=== PATIENT | female | born 1980 | race African-American/Black ===

== ENCOUNTER 2017-01-23 23:55 | Emergency (ER) | payer OTHER ==
[2017-01-24 00:10] VITALS: BMI 29.0
--- NOTE | 2017-01-24 00:30 | DR.GENAD ---
HPI - PCP Primary Care Physician: alvaro - Complaint/Symptoms Chief Complaint Doctors Comments: Patient complains of mid-sternum chest pain; relieved by GI cocktail. Chief Complaint:: hurting in mid sternum and around top of left breast patient burped earlier and it got better but did not go away. left leg also been hurting Self Treatment fo Chief Complaint: gi cocktail times 2 last dose about 10:17 patient took a 1/2 soma about 10pm - Source History Provided: Patient - Mode of Arrival Mode of Arrival: Ambulatory - Timing Onset of Chief Complaint: 01/23/17 PMH - PMH Past Medical History: Yes Past Medical History: Anxiety, Depression, Dyslipidemia, GERD Past Medical History Comment: swelling Past Surgical History: Yes Surgical History: - Family History History of Family Medical Conditions: Yes Family Medical History: Diabetes Mellitus, [place], Hypertension Family Medical History Comment: cva - Social History Does patient currently use any type of tobacco product: No Have you used tobacco products in the last 12 months: No Type of Tobacco Use: None How many years tobacco product used: 10 Does any household member use tobacco: No Alcohol Use: None Do you use any recreational Drugs:: No Lives With: Family Lives Where: Home - infectious screening In the last 2 months have you had wt loss of >10#?: NO Have you had fever, night sweats or hemotysis?: No Have you traveled outside the country in the last 6 months?: No Isolation: Standard ROS - Review of Systems Constitutional: No Symptoms Reported Eyes: No Symptoms Reported ENTM: No Symptoms Reported Respiratoy: No Symptoms Reported Cardiovascular: No Symptoms Reported Gastrointestinal/Abdominal: No Symptoms Reported Genitourinary: No Symptoms Reported Neurological: No Symptoms Reported Musculoskeletal: No Symptoms Reported Integumentary: No Symptoms Reported Hematologic/Lymphatic: No Symptoms Reported Endocrine: No Symptoms Reported Psychiatric: No Symptoms Reported All Other Systems: Reviewed and Negative PE - Vital Signs Vitals: Temperature 98.3 F Pulse Rate 79 Respiratory Rate 20 Blood Pressure 105/80 O2 Sat by Pulse Oximetry 98 - General Limitations: No Limitations General Appearance: Alert, In No Apparent Distress - Head Head Exam: Normal Inspection, Atraumatic - Eyes Eye exam: Normal Appearance, PERRL, EOMI - ENT ENT Exam: Normal Exam External Ear Exam: Normal External Inspection TM/Canal Exam: Bilateral Normal Nose Exam: Normal Nose Exam Mouth Exam: Normal Inspection Throat Exam: Normal Inspection - Neck Neck Exam: Normal Inspection - Chest Chest Inspection: Normal Inspection - Respiratory Respiratory Exam: Normal Lung Sounds Bilat Respiratory Exam: Bilateral Clear to Auscultation - Cardiovascular Cardiovascular Exam: Regular Rate, Normal Rhythm - Abdominal Exam Abdominal Exam: Normal Inspection, Normal Bowel Sounds Abdominal Tenderness: negative: RUQ, RLQ, LUQ, LLQ, Epigastrium, Suprapubic, Diffuse, Mild, Moderate, Severe, Other - Extremities Extremities Exam: Normal Inspection - Back Back Exam: Normal Inspection, Full ROM - Neurologic Neurological Exam: Alert, Oriented X3, CN II-XII Intact - Psychiatric Psychiatric Exam: Normal Affect, Normal Mood - Skin Skin Exam: Warm, Dry, Intact Course - Reevaluation 1st: Improved ROR - Labs Reviewed Laboratory Results Reviewed?: Yes (low potassium) Result Diagrams: 01/24/17 01:00 01/24/17 01:00 Laboratory: WBC 6.3 X10^3/uL (3.6-10.0) 01/24/17 01:00 RBC 3.85 X10^6/uL (3.5-5.4) 01/24/17 01:00 Hgb 11.4 g/dL (12.0-16.0) L 01/24/17 01:00 Hct 34.7 % (36.0-47.0) L 01/24/17 01:00 MCV 90.3 fL (80.0-100.0) 01/24/17 01:00 MCH 29.5 pg (27.0-34.0) 01/24/17 01:00 MCHC 32.7 g/dL (33.0-35.0) L 01/24/17 01:00 RDW 14.8 % (11.6-16.5) 01/24/17 01:00 Plt Count 285 X10^3/uL (150.0-450.0) 01/24/17 01:00 MPV 6.8 fL (7.4-11.0) L 01/24/17 01:00 Neut % 32.7 % (42.0-75.0) L 01/24/17 01:00 Lymph % 56.6 % (21.0-51.0) H 01/24/17 01:00 [place] % 6.7 % (0.0-13.0) 01/24/17 01:00 Eos % 3.3 % (0.9-2.9) H 01/24/17 01:00 Baso % 0.7 % (0.2-1.0) 01/24/17 01:00 Neut # 2.0 x10^3/uL (2.2-4.8) L 01/24/17 01:00 Lymph # 3.6 X10^3/uL (1.3-2.9) H 01/24/17 01:00 [place] # 0.4 x10^3/uL (0.3-0.8) 01/24/17 01:00 Eos # 0.2 x10^3/uL (0.0-0.2) 01/24/17 01:00 Baso # 0.0 X10^3/uL (0.0-0.1) 01/24/17 01:00 Absolute Nucleated RBC 0.1 /100WBC 01/24/17 01:00 INR Target Range - 01/24/17 01:00 INR 0.92 (0.8-1.3) 01/24/17 01:00 Sample Site Lr 01/24/17 01:25 ABG pH 7.420 (7.35-7.45) 01/24/17 01:25 ABG pCO2 44.0 mmHg (35.0-45.0) 01/24/17 01:25 ABG pO2 75.0 mmHg (80.0-100.0) L 01/24/17 01:25 ABG HCO3 28.5 mmol/L (22-26) H 01/24/17 01:25 ABG O2 Saturation 95.0 % (90-100) 01/24/17 01:25 ABG Base Excess 3.5 mmol/L (-2.0-2.0) H 01/24/17 01:25 Mik Test Pos 01/24/17 01:25 A-a Gradient 20.0 mmHg 01/24/17 01:25 FiO2 21 01/24/17 01:25 Blood Gas Comments Suki well ae 01/24/17 01:25 Sodium 141 mmol/L (136-145) 01/24/17 01:00 Corrected Sodium TNP 01/24/17 01:00 Potassium 3.3 mmol/L (3.5-5.1) L 01/24/17 01:00 Chloride 102 mmol/L (98-107) 01/24/17 01:00 Carbon Dioxide 28.8 mmol/L (21-32) 01/24/17 01:00 BUN 9 mg/dL (7-18) 01/24/17 01:00 Creatinine 1.03 mg/dL (0.55-1.02) H 01/24/17 01:00 Est GFR (MDRD) Af Amer > 60 (>60) 01/24/17 01:00 Est GFR (MDRD) Non-Af > 60 (>60) 01/24/17 01:00 Glucose 87 mg/dL (65-99) 01/24/17 01:00 Calcium 8.6 mg/dL (8.5-10.1) 01/24/17 01:00 Corrected Calcium TNP 01/24/17 01:00 Phosphorus 3.6 mg/dL (2.6-4.7) 01/24/17 01:00 Magnesium 2.0 mg/dL (1.7-2.9) 01/24/17 01:00 Total Bilirubin 0.20 mg/dL (0.2-1.0) 01/24/17 01:00 AST 20 Units/L (15-37) 01/24/17 01:00 ALT 23 Units/L (12-78) 01/24/17 01:00 Alkaline Phosphatase 67 Units/L (46-116) 01/24/17 01:00 Creatine Kinase 219 Units/L (26-192) H 01/24/17 01:00 CK-MB (CK-2) 1.3 ng/mL (0-4.0) 01/24/17 01:00 CK/CKMB % Calc 0.6 % (<4) 01/24/17 01:00 Troponin I < 0.02 ng/mL (0-1.5) 01/24/17 01:00 Total Protein 7.2 g/dL (6.4-8.2) 01/24/17 01:00 Albumin 3.5 g/dL (3.4-5.0) 01/24/17 01:00 Globulin 3.7 g/dL (2.5-4.5) 01/24/17 01:00 Albumin/Globulin Ratio 0.9 Ratio (1.1-2.1) L 01/24/17 01:00 - Diagnosis Discharge Problem: Hypokalemia Chest pain Qualifiers: Chest pain type: unspecified Qualified Code(s): R07.9 - Chest pain, unspecified - Discharge Plan Condition: Stable - Follow ups/Referrals Follow ups/Referrals: Hany Willis [Primary Care Provider] - 3 days - Instructions
--- NOTE | 2017-01-24 01:04 | RAD ---
EXAM: Chest X-ray INDICATION: Chest pain COMPARISION: Prior exam from May 22, 2015 TECHNIQUE: AP, single view FINDINGS: The lungs are clear in the lung volumes are within normal limits. No pleural effusion or pneumothora x. The cardiac silhouette and mediastinum are normal. The regional skeleton is intact. IMPRESSION: Normal Chest X-Ray Reported By:
[2017-01-24 01:30] LABS: ABG ALLEN TEST POS; ABG BASE EXCESS 3.5 mmol/L (-2.0-2.0); ABG HCO3 28.5 mmol/L (22-26); FRACTIONATED INSPIRED OXYGEN 21
[2017-01-24 01:38] LABS: BASOPHILS % (AUTO) 0.7 % (0.2-1.0); EOSINOPHILS # (AUTO) 0.2 x10^3/uL (0.0-0.2); EOSINOPHILS % (AUTO) 3.3 % (0.9-2.9); HEMATOCRIT 34.7 % (36.0-47.0); HEMOGLOBIN 11.4 g/dL (12.0-16.0); LYMPHOCYTES # (AUTO) 3.6 X10^3/uL (1.3-2.9); LYMPHOCYTES % (AUTO) 56.6 % (21.0-51.0); MEAN CORPUSCULAR HEMOGLOBIN 29.5 pg (27.0-34.0); MEAN CORPUSCULAR HGB CONC 32.7 g/dL (33.0-35.0); MEAN CORPUSCULAR VOLUME 90.3 fL (80.0-100.0); MEAN PLATELET VOLUME 6.8 fL (7.4-11.0); MONOCYTES # (AUTO) 0.4 x10^3/uL (0.3-0.8); MONOCYTES % (AUTO) 6.7 % (0.0-13.0); NEUTROPHILS % (AUTO) 32.7 % (42.0-75.0); PLATELET COUNT 285 X10^3/uL (150.0-450.0); RED BLOOD COUNT 3.85 X10^6/uL (3.5-5.4); RED CELL DISTRIBUTION WIDTH 14.8 % (11.6-16.5); WHITE BLOOD COUNT 6.3 X10^3/uL (3.6-10.0)
[2017-01-24 01:50] LABS: BLOOD UREA NITROGEN 9 mg/dL (7-18); CALCIUM 8.6 mg/dL (8.5-10.1); CARBON DIOXIDE 28.8 mmol/L (21-32); CHLORIDE 102 mmol/L (98-107); CREATININE 1.03 mg/dL (0.55-1.02); GLUCOSE 87 mg/dL (65-99); SODIUM 141 mmol/L (136-145); TROPONIN I < 0.02 ng/mL (0-1.5); eGFR BLACK RACES > 60 (>60); eGFR NON BLACK RACES > 60 (>60)
[2017-01-24 01:54] LABS: ALANINE AMINOTRANSFERASE 23 Units/L (12-78); ALBUMIN 3.5 g/dL (3.4-5.0); ALKALINE PHOSPHATASE 67 Units/L (46-116); ASPARTATE AMINO TRANSFERASE 20 Units/L (15-37); CKMB % 0.6 % (<4); CREATINE KINASE 219 Units/L (26-192); CREATINE KINASE MB 1.3 ng/mL (0-4.0); PHOSPHORUS 3.6 mg/dL (2.6-4.7); TOTAL PROTEIN 7.2 g/dL (6.4-8.2)
[2017-01-24] MEDS ORDERED: K-DUR TAB 20 MEQ PO ONE ×2 (02:03→02:05)
[2017-01-24 02:24] VITALS: BP 115/75
== END 2017-01-24 02:24 | disposition home or self-care (01) ==
LOC: ER 23:55
DX: R07.89 Other chest pain (principal); E87.6 Hypokalemia
CPT/HCPCS: 36415; 36600; 71010; 80053; 82550; 82553; 82803; 83735; 84100; 84484; 85025; 85610; 93005; 99283

== ENCOUNTER 2017-02-05 20:14 | Emergency (ER) | payer OTHER ==
[2017-02-05 20:20] VITALS: BP 116/74; BMI 31.0
--- NOTE | 2017-02-05 21:08 | DR.FB ---
HPI - Time Seen Time seen: 21:00 - PCP Primary Care Physician: USAMA - HPI Comment HPI Comment: SWELLING DISTAL RT INDEX FINGER. PATIENT SAID A METAL IT EMBEDDED IN THE FINGER. SHE TRY PULLING IT OUT WITHOUT SUCCESS. - Complaint Chief Complaint:: RIGHT HAND INDEX FINGER EDEMA, METAL IN FINGER FOR A WHILE NOW. PAIN - Reviewed Nurses Notes Review: Yes - Source History Provided: Patient - Mode of Arrival Mode of Arrival: Ambulatory - Timing Onset of Chief Complaint: 02/05/17 - Context Context: Injury Foreign body: Other (METAL) Removal: Was attempted (BY PATIENT), Was not successful Last tetanus: UTD - Severity Pain Severity: Moderate PMH - PMH Past Medical History: Yes Past Medical History: Anxiety, Depression, Dyslipidemia, GERD Past Surgical History: Yes Surgical History: - Family History History of Family Medical Conditions: Yes Family Medical History: Diabetes Mellitus, [place], Hypertension - Social History Does patient currently use any type of tobacco product: No Have you used tobacco products in the last 12 months: No Type of Tobacco Use: None Alcohol Use: None Do you use any recreational Drugs:: No Lives With: Family Lives Where: Home - infectious screening Have you traveled outside the country in the last 6 months?: No Isolation: Standard ROS - Review of Systems Constitutional: No Symptoms Reported Eyes: No Symptoms Reported ENTM: No Symptoms Reported Respiratoy: No Symptoms Reported Cardiovascular: No Symptoms Reported Gastrointestinal/Abdominal: No Symptoms Reported Genitourinary: No Symptoms Reported Neurological: No Symptoms Reported Musculoskeletal: Right, Hand Integumentary: Other (FB FINGER) Hematologic/Lymphatic: No Symptoms Reported Endocrine: No Symptoms Reported All Other Systems: Reviewed and Negative PE - Vital Signs Vitals: Pulse Rate 76 Respiratory Rate 16 Blood Pressure [Left Arm] 115/75 Blood Pressure 116/74 O2 Sat by Pulse Oximetry 99 - General Limitations: No Limitations General Appearance: Alert - Eyes Eye exam: Normal Appearance - ENT ENT Exam: Normal External Ear Exam External Ear Exam: Normal External Inspection Throat Exam: Normal Inspection - Neck Neck Exam: Trachea Midline - Respiratory Respiratory Exam: Bilateral Clear to Auscultation - Cardiovascular Cardiovascular Exam: Regular Rate, Normal Rhythm, Normal Heart Sounds - Abdominal Exam Abdominal Exam: Normal Inspection - Rectal Rectal Exam: Deferred - Genitalia Genitalia: Deferred - Neurologic Neurological Exam: Alert, Oriented X3 - Psychiatric Psychiatric Exam: Anxious - Skin Skin Exam: Normal Color MDM - Differential Diagnosis Differential Diagnosis: Foreign body, Other Course - Treatment Treatment: XRAY DID NOT VISUALIZE FB. PALPATION OF FINGER, NO FB FELT. - Education/Counseling Education/Counseling: Patient, Education Educated On: Diagnosis, Needs for Follow Up ROR - XRAY XRAY Interpreted by: Radiologist XRAY Findings: REPORT DISCUSS WITH PATIENT. - Diagnosis Discharge Problem: Abrasion Contusion of finger, right Qualifiers: Encounter type: initial encounter Finger: index finger Damage to nail status: without damage Qualified Code(s): S60.021A - Contusion of right index finger without damage to nail, initial encounter - Discharge Plan Disposition: HOME, SELF-CARE Condition: Stable - Follow ups/Referrals Follow ups/Referrals: Hany Willis [Primary Care Provider] - 1 day - Instructions Instructions: Abrasion, [id number], Contusion Additional Instructions: RETURN TO ED IF WORSE.
--- NOTE | 2017-02-05 22:27 | RAD ---
Right hand, three views Indication: Finger swelling, concern for metal in finger Comparison: None Findings: There is mild soft tissue swelling of the index finger. No radiopaque density identified. No cortical lucency or malalignment of the bones appreciated. Impression: Soft tissue swelling the index finger, without evidence for radiopaque foreign body. No acute skeletal abnormality. Reported By:
== END 2017-02-05 22:08 | disposition home or self-care (01) ==
LOC: ER 20:26
DX: S60.021A Contusion of right index finger without damage to nail, initial encounter (principal); M79.89 Other specified soft tissue disorders; W45.8XXA Other foreign body or object entering through skin, initial encounter; Y92.9 Unspecified place or not applicable
CPT/HCPCS: 73130; 99282; 99283

== ENCOUNTER 2017-08-03 10:43 | Emergency (ER) | payer OTHER ==
[2017-08-03 10:54] VITALS: BP 117/71; BMI 31.7
--- NOTE | 2017-08-03 11:13 | DR.GENAD ---
HPI - PCP Primary Care Physician: CAIT - HPI Comment HPI Comment: PAIN LEFT THIGH GOING INTO RT FOOT. ALSO LEFT UPPER CHEST PAIN THAT IS GETTING WORSE. PCP GAVE MEDS AND PATIENT IS TAKING MEDS. STILL PAIN PERSIST AND IS GETTING WORSE. - Complaint/Symptoms Chief Complaint Doctors Comments: PAIN LEFT UPPER CHEST AND LT THIGH. Chief Complaint:: LEFT LEG AND FOOT Self Treatment fo Chief Complaint: RESTING AND GAVE ME SOME MEDS FOR INFLAMATION. - Nurses notes reviewed Nurses Notes Review: Yes - Source History Provided: Patient - Mode of Arrival Mode of Arrival: Ambulatory - Timing Onset of Chief Complaint: 07/06/17 Came on: Suddenly - Duration Duration: Constant Duration: Days - Severity Severity: Moderate PMH - PMH Past Medical History: Yes Past Medical History: Anxiety, Depression, Dyslipidemia, GERD Past Surgical History: Yes Surgical History: - Family History History of Family Medical Conditions: Yes Family Medical History: Diabetes Mellitus, [place], Hypertension - Social History Does any household member use tobacco: No Alcohol Use: None Do you use any recreational Drugs:: No Lives With: Family Lives Where: Home - infectious screening In the last 2 months have you had wt loss of >10#?: NO Have you had fever, night sweats or hemotysis?: No Have you traveled outside the country in the last 6 months?: No Isolation: Standard ROS - Review of Systems Constitutional: No Symptoms Reported Eyes: No Symptoms Reported ENTM: No Symptoms Reported Respiratoy: Short of Breath Cardiovascular: Chest Pain Genitourinary: No Symptoms Reported Neurological: No Symptoms Reported Musculoskeletal: Muscle Pain, Right, Hip, Leg Integumentary: No Symptoms Reported Hematologic/Lymphatic: No Symptoms Reported Endocrine: No Symptoms Reported All Other Systems: Reviewed and Negative PE - Vital Signs Vitals: Temperature 98.2 F Pulse Rate 74 Respiratory Rate 20 Blood Pressure [Left Arm] 115/75 Blood Pressure 117/71 O2 Sat by Pulse Oximetry 100 - General Limitations: No Limitations General Appearance: Alert - Head Head Exam: Normal Inspection - Eyes Eye exam: Normal Appearance - ENT ENT Exam: Normal External Ear Exam External Ear Exam: Normal External Inspection TM/Canal Exam: Bilateral Normal Nose Exam: Normal Nose Exam Mouth Exam: Normal Inspection Throat Exam: Normal Inspection - Neck Neck Exam: Normal Inspection - Chest Chest Inspection: Symmetric Chest Wall Rise - Respiratory Respiratory Exam: Normal Lung Sounds Bilat Respiratory Exam: Bilateral Clear to Auscultation - Cardiovascular Cardiovascular Exam: Regular Rate, Normal Rhythm, Normal Heart Sounds - Abdominal Exam Abdominal Exam: Normal Bowel Sounds, Soft. negative: Tenderness - Extremities Extremities Exam: Tenderness (LEFT THIGH TENDER.) - Back Back Exam: Normal Inspection - Neurologic Neurological Exam: Alert, Oriented X3, CN II-XII Intact, Normal Gait, Reflexes Normal. negative: Motor Sensory Deficit - Psychiatric Psychiatric Exam: Normal Affect, Normal Mood - Skin Skin Exam: Normal Color MDM - Additional Information Additional Information Obtained From: Family - Differential Diagnosis Differential Diagnosis: MUSCULOSKETAL PAIN, ARTHRTIS, DVT, [place], PULMONARY EMBOLISM. Course - Treatment Treatment: SEE ORDERS. VERAL ATTEMPTS AT IV INSERTION FAIL. DVT NEGATIVE PER US. PATIENT WILL SEE DR. FORRESTER IN AM FOR FURTHER MANAGEMENT. - Education/Counseling Education/Counseling: Patient, Family, Education Educated On: Treatment, Diagnosis, Needs for Follow Up ROR - Labs Reviewed Laboratory Results Reviewed?: Yes Result Diagrams: 08/03/17 11:34 08/03/17 11:34 Laboratory: WBC 5.8 X10^3/uL (3.6-10.0) 08/03/17 11:34 RBC 3.95 X10^6/uL (3.5-5.4) 08/03/17 11:34 Hgb 12.0 g/dL (12.0-16.0) 08/03/17 11:34 Hct 35.8 % (36.0-47.0) L 08/03/17 11:34 MCV 90.5 fL (80.0-100.0) 08/03/17 11:34 MCH 30.4 pg (27.0-34.0) 08/03/17 11:34 MCHC 33.7 g/dL (33.0-35.0) 08/03/17 11:34 RDW 14.3 % (11.6-16.5) 08/03/17 11:34 Plt Count 281 X10^3/uL (150.0-450.0) 08/03/17 11:34 MPV 6.5 fL (7.4-11.0) L 08/03/17 11:34 Neut % 41.9 % (42.0-75.0) L 08/03/17 11:34 Lymph % 45.5 % (21.0-51.0) 08/03/17 11:34 [place] % 7.9 % (0.0-13.0) 08/03/17 11:34 Eos % 4.0 % (0.9-2.9) H 08/03/17 11:34 Baso % 0.7 % (0.2-1.0) 08/03/17 11:34 Neut # 2.4 x10^3/uL (2.2-4.8) 08/03/17 11:34 Lymph # 2.6 X10^3/uL (1.3-2.9) 08/03/17 11:34 [place] # 0.5 x10^3/uL (0.3-0.8) 08/03/17 11:34 Eos # 0.2 x10^3/uL (0.0-0.2) 08/03/17 11:34 Baso # 0.0 X10^3/uL (0.0-0.1) 08/03/17 11:34 Absolute Nucleated RBC 0.1 /100WBC 08/03/17 11:34 D-Dimer 603 ng/mL (0-400) H* 08/03/17 11:34 Sodium 139 mmol/L (136-145) 08/03/17 11:34 Corrected Sodium TNP 08/03/17 11:34 Potassium 3.9 mmol/L (3.5-5.1) 08/03/17 11:34 Chloride 104 mmol/L (98-107) 08/03/17 11:34 Carbon Dioxide 26.9 mmol/L (21-32) 08/03/17 11:34 BUN 7 mg/dL (7-18) 08/03/17 11:34 Creatinine 1.01 mg/dL (0.55-1.02) 08/03/17 11:34 Est GFR (MDRD) Af Amer > 60 (>60) 08/03/17 11:34 Est GFR (MDRD) Non-Af > 60 (>60) 08/03/17 11:34 Glucose 103 mg/dL (65-99) H 08/03/17 11:34 Calcium 8.8 mg/dL (8.5-10.1) 08/03/17 11:34 Corrected Calcium TNP 08/03/17 11:34 Total Bilirubin 0.40 mg/dL (0.2-1.0) 08/03/17 11:34 AST 23 Units/L (15-37) 08/03/17 11:34 ALT 23 Units/L (12-78) 08/03/17 11:34 Alkaline Phosphatase 67 Units/L (46-116) 08/03/17 11:34 Creatine Kinase 250 Units/L (26-192) H 08/03/17 11:34 CK-MB (CK-2) 1.2 ng/mL (0-4.0) 08/03/17 11:34 CK/CKMB % Calc 0.5 % (<4) 08/03/17 11:34 Troponin I < 0.02 ng/mL (0-1.5) 08/03/17 11:34 Total Protein 7.1 g/dL (6.4-8.2) 08/03/17 11:34 Albumin 3.7 g/dL (3.4-5.0) 08/03/17 11:34 Globulin 3.4 g/dL (2.5-4.5) 08/03/17 11:34 Albumin/Globulin Ratio 1.1 Ratio (1.1-2.1) 08/03/17 11:34 - XRAY XRAY Interpreted by: Radiologist XRAY Findings: REPORT DISCUSS WITH PATIENT. - Diagnosis Discharge Problem: Left thigh pain Chest pain Qualifiers: Chest pain type: intercostal pain Qualified Code(s): R07.82 - Intercostal pain - Discharge Plan Disposition: 01 HOME, SELF-CARE Condition: Stable - Follow ups/Referrals Follow ups/Referrals: Hany Forrester [Primary Care Provider] - 3 days - Instructions Instructions: Musculoskeletal Pain, Chest Pain Observation Additional Instructions: RETURN TO ED IF WORSE
[2017-08-03 11:46] LABS: BASOPHILS % (AUTO) 0.7 % (0.2-1.0); EOSINOPHILS # (AUTO) 0.2 x10^3/uL (0.0-0.2); HEMATOCRIT 35.8 % (36.0-47.0); LYMPHOCYTES # (AUTO) 2.6 X10^3/uL (1.3-2.9); LYMPHOCYTES % (AUTO) 45.5 % (21.0-51.0); MEAN CORPUSCULAR HEMOGLOBIN 30.4 pg (27.0-34.0); MEAN CORPUSCULAR HGB CONC 33.7 g/dL (33.0-35.0); MEAN CORPUSCULAR VOLUME 90.5 fL (80.0-100.0); MEAN PLATELET VOLUME 6.5 fL (7.4-11.0); MONOCYTES # (AUTO) 0.5 x10^3/uL (0.3-0.8); MONOCYTES % (AUTO) 7.9 % (0.0-13.0); NEUTROPHILS # (AUTO) 2.4 x10^3/uL (2.2-4.8); NEUTROPHILS % (AUTO) 41.9 % (42.0-75.0); PLATELET COUNT 281 X10^3/uL (150.0-450.0); RED BLOOD COUNT 3.95 X10^6/uL (3.5-5.4); RED CELL DISTRIBUTION WIDTH 14.3 % (11.6-16.5); WHITE BLOOD COUNT 5.8 X10^3/uL (3.6-10.0)
[2017-08-03 12:06] LABS: BLOOD UREA NITROGEN 7 mg/dL (7-18); CALCIUM 8.8 mg/dL (8.5-10.1); CARBON DIOXIDE 26.9 mmol/L (21-32); CHLORIDE 104 mmol/L (98-107); CREATININE 1.01 mg/dL (0.55-1.02); SODIUM 139 mmol/L (136-145); TROPONIN I < 0.02 ng/mL (0-1.5); eGFR BLACK RACES > 60 (>60); eGFR NON BLACK RACES > 60 (>60)
[2017-08-03 12:10] LABS: ALANINE AMINOTRANSFERASE 23 Units/L (12-78); ALBUMIN 3.7 g/dL (3.4-5.0); ALKALINE PHOSPHATASE 67 Units/L (46-116); ASPARTATE AMINO TRANSFERASE 23 Units/L (15-37); CKMB % 0.5 % (<4); CREATINE KINASE 250 Units/L (26-192); CREATINE KINASE MB 1.2 ng/mL (0-4.0); TOTAL PROTEIN 7.1 g/dL (6.4-8.2)
[2017-08-03] MEDS ORDERED: NS 100 ML IV 100 ML IV ONE (13:22)
--- NOTE | 2017-08-03 15:14 | VAS ---
HISTORY: Left thigh pain. Left leg pain. D-dimer 603. Study: Left lower extremity venous Doppler Comparison: None. TECHNIQUE: Real-time dynamic grayscale, color flow and complete spectral Doppler ultrasound examinat ion of the major deep venous structures were obtained of the left lower extremity. FINDINGS: Left lower extremity: Real-time examination shows no evidence of thrombus within the common femoral, superficial femoral, or popliteal veins. There is normal compressibility throughout. Color flow imagi ng shows normal venous blood flow within the major vessels. Doppler examination shows normal venous w aveforms with appropriate respiratory variation and augmentation. IMPRESSION: 1. Normal left lower extremity venous Doppler, without evidence of DVT. Reported By:
--- NOTE | 2017-08-03 16:18 | RAD ---
HISTORY: Left leg and foot pain. Study: Left foot three views Comparison: None. Findings: No acute cortical disruption or dislocation can be identified. No significant soft tissue swelling o r injury can be seen. The visualized portions of the talus and calcaneus are unremarkable. IMPRESSION: 1. Negative exam. Reported By:
--- NOTE | 2017-08-03 16:18 | RAD ---
HISTORY: Left foot leg pain. Study: Left femur four views Comparison: None. Findings: No acute cortical disruption or dislocation can be identified. The femoral head and neck are unremar kable in their appearance. No significant soft tissue swelling or injury can be seen. IMPRESSION: 1. Negative exam of the left femur. Reported By:
== END 2017-08-03 17:08 | disposition home or self-care (01) ==
LOC: ER 10:58
DX: M79.652 Pain in left thigh (principal); R07.82 Intercostal pain
CPT/HCPCS: 36415; 73552; 73630; 80053; 82550; 82553; 84484; 85025; 85378; 93005; 93010; 93971; 99282; 99283; A4222

== ENCOUNTER → 2017-08-15 | Outpatient (CLI) | payer OTHER ==
[2017-08-03 10:54] VITALS: BP 117/71
[~2017-08-15] MED LIST: NS 100 ML IV 100 ML IV ONE
--- NOTE | 2017-08-15 21:13 | CT ---
CT of the abdomen and pelvis with contrast Indication: Patient with elevated cancer antigen without abdominal complaints. Comparison: CT of the abdomen and pelvis done October 14, 2015. Technique: 5 mm axial images of the abdomen and pelvis was performed after the IV and oral administra tion of contrast. Findings: Hazy opacity within the lingula is unchanged from the prior radiograph and likely represent s scarring. Right lower lobe pleural-based nodular thickening likely represents atelectasis. The abdo violeta aorta shows no atherosclerotic disease or aneurysmal dilatation. The subcutaneous tissues are n ormal in appearance. There is fat and fluid containing right inguinal hernia. Abdomen: The liver is unremarkable. The gallbladder, kidneys, adrenal glands, spleen, and pancreas ar e unremarkable. Pelvis: There is heterogeneity to the uterus. Urinary bladder is unremarkable. There are scattered co lonic diverticula. No definite bowel lesion is seen given limitations of CT. Small bowel is unremarka ble. No pelvic adenopathy is seen. Conclusion: 1. Heterogeneous uterus is nonspecific on CT. Given the history of elevated markers and d epending on the marker tight dedicated urine ultrasound may be helpful for further evaluation. 2. Fat and fluid containing right inguinal hernia. Reported By:
--- NOTE | 2017-08-18 13:33 | CT ---
HISTORY: Elevated D-dimer and elevated cancer antigen. Study: CT chest with contrast Comparison: Chest x-ray dated January 24, 2017. Technique: Multiple axial images of the chest were obtained from the thoracic inlet to the upper abdo men after the administration of IV contrast. Dose reduction techniques including Automated Exposure C ontrol (AEC) and adjustment of mA and kV were utilized. Findings: The mediastinum does not demonstrate significant pathological lymphadenopathy. There is no paracardi al effusion observed. The thoracic aorta is normal in its contour without evidence for aneurysmal di latation. Mild/moderate atherosclerotic vascular calcifications of the coronary arteries. The centra l pulmonary arterial system does not demonstrate central filling defects to suggest pulmonary emboli. Dependent atelectasis versus scarring. No obvious pulmonary nodule, mass, pleural effusion, focal con solidation, or pneumothorax. The visualized upper abdominal structures demonstrate a normal contrast appearance. Degenerative changes of the spine. No aggressive osseous lesions. IMPRESSION: 1. No CT evidence of acute thoracic pathology or pulmonary embolus. 2. Coronary artery calcifications as above. Recommend risk stratification and consider Cardiology con sultation. Reported By:
== END | disposition home or self-care (01) | DRG 948 ==
LOC: RAD 11:30
PROVIDERS: ATTEND Internal Medicine
DX: R97.1 Elevated cancer antigen 125 [CA 125] (principal); R79.89 Other specified abnormal findings of blood chemistry; K40.90 Unilateral inguinal hernia, without obstruction or gangrene, not specified as recurrent
CPT/HCPCS: 71260; 74177; A4222